=== PATIENT | male | born 1990 | race Caucasian/White ===

== ENCOUNTER 2022-11-23 11:07 | Emergency (ER) | payer SELFPAY ==
[2022-11-23] MEDS ORDERED: Naloxone 0.4 MG/ML SDV IVPUSH PRN (11:43)
[2022-11-23] MEDS ORDERED: HYDROmorphone 1 MG/ML Syringe IVPUSH ONE (11:43)
[2022-11-23] MEDS ORDERED: Sodium Chloride 0.9% 10 ML Syringe FLUSH PRN ×2 (11:43→13:09)
[2022-11-23] MEDS ORDERED: Pantoprazole 40 MG Vial IVPUSH ONE (11:43)
[2022-11-23] MEDS ORDERED: Ondansetron 4 MG/2 ML SDV IVPUSH ONE (11:43)
[2022-11-23] MEDS ORDERED: Sodium Chloride 0.9% 1,000 ML IV ONE (11:44)
[2022-11-23 11:48] LABS: BASOPHILS ABSOLUTE AUTO 0.04 K/uL (0.00-0.10); BASOPHILS PERCENT AUTO 0.2 % (0.1-1.3); EOSINOPHILS ABSOLUTE AUTO 0.01 K/uL (0.00-0.40); EOSINOPHILS PERCENT AUTO 0.1 % (0.0-5.4); HEMATOCRIT 47.6 % (38.4-49.7); HEMOGLOBIN 16.4 g/dL (12.9-16.9); IMMATURE GRAN ABSOLUTE AUTO 0.05 K/uL (0.00-0.23); IMMATURE GRAN PERCENT AUTO 0.3 % (0.0-0.7); LYMPHOCYTES ABSOLUTE AUTO 0.26 K/uL (0.8-3.3); LYMPHOCYTES PERCENT AUTO 1.6 % (11.4-47.7); MEAN CORPUSCULAR HEMOGLOBIN 32.2 pg (31.6-35.5); MEAN CORPUSCULAR HGB CONC 34.5 g/dL (31.6-35.5); MEAN CORPUSCULAR VOLUME 93.3 fL (81.4-99.0); MONOCYTES ABSOLUTE AUTO 0.87 K/uL (0.20-0.90); MONOCYTES PERCENT AUTO 5.3 % (3.3-12.6); NEUTROPHILS ABSOLUTE AUTO 15.08 K/uL (1.0-7.6); NEUTROPHILS PERCENT AUTO 92.5 % (40.0-78.1); PLATELET COUNT,PLT 245 K/uL (130-375); WHITE BLOOD CELL COUNT,WBC 16.3 K/uL (3.2-11.0)
[2022-11-23 12:06] LABS: A/G RATIO 1.1 (1.2-2.2); ALANINE AMINOTRANSFERASE,ALT 30 U/L (12-78); ALBUMIN 4.1 g/dL (3.4-5.0); ALKALINE PHOSPHATASE 69 U/L (46-116); ANION GAP 13.1 mmol/L (5.0-14.0); ASPARTATE AMNIOTRANSFERASE,AST 20 U/L (15-37); BILIRUBIN TOTAL 0.9 mg/dL (0.2-1.0); BLOOD UREA NITROGEN,BUN 17 mg/dL (7-18); C-REACTIVE PROTEIN 1.08 mg/dL (0.0-0.3); CALCIUM 9.2 mg/dL (8.5-10.1); CARBON DIOXIDE,CO2 27 mmol/L (21-32); CHLORIDE,CL 102 mmol/L (100-108); CREATININE 1.1 mg/dL (0.8-1.3); EST CRCL DRUG DOSING (CG) 107.73 mL/min; ESTIMATED GFR 91 mL/min (>60); GLUCOSE RANDOM 116 mg/dL (74-106); POTASSIUM,K 4.1 mmol/L (3.6-5.2); SODIUM,NA 138 mmol/L (140-148)
[2022-11-23] MEDS ORDERED: Iopamidol 612 MG/ML 100 ML Bottle IV PRN (13:09)
[2022-11-23] MEDS ORDERED: Sodium Chloride 0.9% 50 ML IV SCH (13:15)
[2022-11-23] MEDS ORDERED: HYDROmorphone 0.5 MG/0.5 ML Syringe IVPUSH ONE (13:50)
== END 2022-11-23 15:18 | disposition home or self-care (01) ==
LOC: JP.ED 11:07
DX: K52.9 Noninfective gastroenteritis and colitis, unspecified (principal); F17.210 Nicotine dependence, cigarettes, uncomplicated
CPT/HCPCS: 36415; 74177; 76705; 80053; 83690; 85025; 86140; 96361; 96374; 96375; 96376; 99284; C9113; J1170; J2405; J3490; J7030; Q9967

== ENCOUNTER 2023-01-01 19:37 | Emergency (ER) | payer SELFPAY ==
[2023-01-01] MEDS ORDERED: Lidocaine 1% 5 ML VIAL INJECT ONE (20:32)
[2023-01-01] MEDS ORDERED: Bacitracin Oint 1 GM U/D Packet TOP ONE (20:32)
== END 2023-01-01 21:10 | disposition home or self-care (01) ==
LOC: JP.ED 19:37
DX: L60.0 Ingrowing nail (principal); F17.210 Nicotine dependence, cigarettes, uncomplicated
CPT/HCPCS: 11750; 99282; 99283

== ENCOUNTER 2023-05-02 19:00 | Emergency (ER) | payer SELFPAY | END 2023-05-02 20:10 | disposition left against medical advice (07) | LOC: JP.ED 19:00 | DX: Z53.21 Procedure and treatment not carried out due to patient leaving prior to being seen by health care provider (principal) ==